=== PATIENT | male | born 1935 | race Caucasian/White ===

== ENCOUNTER → 2023-07-19 15:21 | Outpatient (REF) | payer MEDICARE, SELFPAY | LOC: RAD 15:21 | PROVIDERS: ATTENDING PHYSICIAN Physician Assistant Medical | DX: R05.3 Chronic cough (principal) | CPT/HCPCS: 71046 ==

== ENCOUNTER → 2024-02-14 10:36 | Outpatient (REF) | payer MEDICARE, SELFPAY | LOC: RAD 10:36 | PROVIDERS: ATTENDING PHYSICIAN Physician Assistant Medical; PRIMARYCARE PHYSICIAN Family Medicine | DX: R13.10 Dysphagia, unspecified (principal); K21.00 Gastro-esophageal reflux disease with esophagitis, without bleeding | CPT/HCPCS: 74246 ==